=== PATIENT | male | born 1975 | race Caucasian/White ===

== ENCOUNTER 2019-12-31 16:48 | Emergency (ER) | payer OTHER ==
[~2019-12-31] VITALS: Ht 172.7 cm; Wt 74.8 kg
[2019-12-31 17:31] LABS: INFLUENZA A ANTIGEN Negative (Negative); INFLUENZA B ANTIGEN Negative (Negative)
[2019-12-31] MEDS ORDERED: CLARITIN10 M3 PO (18:14)
[2019-12-31] MEDS ORDERED: TESSALON PERLE100 M1 PO (18:14)
[2019-12-31 18:30] VITALS: BP 131/70
== END 2019-12-31 18:31 | disposition home or self-care (01) ==
LOC: M.ERS 16:48
PROVIDERS: Physician Assistant
DX: R05 Cough (principal); Z88.0 Allergy status to penicillin; Z88.2 Allergy status to sulfonamides

== ENCOUNTER 2021-07-15 19:28 | Emergency (ER) | payer OTHER ==
[~2021-07-15] VITALS: Ht 172.7 cm; Wt 78.9 kg
[~2021-07-15 19:28] MED LIST: CLARITIN10 M3 PO; TESSALON PERLE100 M1 PO
[2021-07-15 20:36] LABS: ABSOLUTE EOSINOPHILS 0.2 thou/uL (0.0-0.7); ABSOLUTE LYMPHOCYTES 2.6 thou/uL (0.8-5.3); ABSOLUTE MONOCYTES 0.6 thou/uL (0.0-1.2); ABSOLUTE NEUTROPHILS 4.7 thou/uL (1.6-8.1); BASOPHILS 0.2 %; EOSINOPHILS 2.1 %; HEMATOCRIT 40.9 % (42.0-52.0); LYMPHOCYTES 31.9 %; MCH 31.6 pg (26.0-34.0); MCHC 34.1 g/dL (28.0-37.0); MCV 92.6 fL (80.0-100.0); MONOCYTES 7.6 %; MPV 7.6 fl. (7.2-11.1); NUCLEATED RBCS 0 /100WBC; PLATELET COUNT* 229 thou/uL (150-400); POLYS 58.2 %; RBC 4.42 mil/uL (4.50-6.00); RDW-CV 14.2 % (10.5-14.5); WBC 8.1 thou/uL (4.0-11.0)
[2021-07-15 20:42] LABS: CALCIUM 8.6 mg/dL (8.5-10.1); CREATININE 1.1 mg/dL (0.6-1.3); POTASSIUM 3.9 mmol/L (3.5-5.1)
[2021-07-15 20:47] LABS: ALBUMIN 3.4 g/dL (3.4-5.0); TOTAL BILIRUBIN 0.2 mg/dL (<0.1-1.0); TOTAL PROTEIN 6.4 g/dL (6.4-8.2)
[2021-07-15 21:26] LABS: URINE BILIRUBIN NEGATIVE (Negative); URINE BLOOD NEGATIVE (Negative); URINE CLARITY CLEAR; URINE COLOR YELLOW; URINE GLUCOSE-RANDOM NEGATIVE (Negative); URINE KETONES NEGATIVE (Negative); URINE LEUKOCYTES NEGATIVE (Negative); URINE NITRITE NEGATIVE (Negative); URINE PROTEIN NEGATIVE (Negative); URINE UROBILINOGEN 0.2 E.U./dl (0.2-1.0)
[2021-07-15] MEDS ORDERED: ZOFRAN ODT4 MG PO (21:35)
[2021-07-15 21:41] VITALS: BP 138/77
== END 2021-07-15 21:42 | disposition home or self-care (01) ==
LOC: M.ERS 19:28
PROVIDERS: Physician Assistant
DX: J02.9 Acute pharyngitis, unspecified (principal); Z20.822 Contact with and (suspected) exposure to COVID-19; R11.2 Nausea with vomiting, unspecified; Z88.0 Allergy status to penicillin; Z88.2 Allergy status to sulfonamides